=== PATIENT | female | born 1945 | race Caucasian/White ===

== ENCOUNTER 2016-08-27 12:59 | Observation (INO) | payer MEDICARE, BC ==
[2016-08-27] VITALS (8 sets, daily range): BP systolic 146–220; BP diastolic 64–92; PULSE 62–90; RESP 16–20; TEMP 97.9–98.1; O2SAT 97–99
[~2016-08-27] VITALS: Ht 157.5 cm; Wt 73.0 kg
[~2016-08-27 12:59] MED LIST: Z.0.NO CURRENT MEDS
[2016-08-27] MEDS ORDERED: LISI-515 PO (13:14)
[2016-08-27] MEDS ORDERED: ASPI1TAB69 PO (13:14)
[2016-08-27] MEDS ORDERED: ATOR40TA16 PO (13:14)
[2016-08-27] MEDS ORDERED: AMLO5TAB2 PO (13:14)
[2016-08-27] MEDS ORDERED: METF500T PO (13:14)
[2016-08-27] MEDS ORDERED: SODIUM CHLOR 0.9% 1000 ML INJ 1,000 ML IV ONE (13:16)
[2016-08-27 13:27] LABS: I-STAT POTASSIUM 4.1 MMOL/L (3.5-4.9); I-STAT SODIUM 140 MMOL/L (138-146)
[2016-08-27 13:30] LABS: AUTOMATED NEUTROPHIL # 3.9 TH/MM3 (1.8-7.7); BASOPHIL % 0.6 % (0.0-2.0); EOSINOPHIL # 0.3 TH/MM3 (0-0.4); EOSINOPHIL % 4.8 % (0.0-4.0); HEMATOCRIT 43.1 % (35.0-46.0); HEMO FLAGS DIFF FINAL; LYMPHOCYTE # 1.6 TH/MM3 (1.0-4.8); MEAN CELL VOLUME 86.8 FL (80.0-100.0); MEAN CORPUSCULAR HEMOGLOBIN 29.8 PG (27.0-34.0); MEAN CORPUSCULAR HGB CONC 34.3 % (32.0-36.0); MONO % 5.9 % (0.0-8.0); NEUT % 62.7 % (16.0-70.0); PLATELET COUNT 202 TH/MM3 (150-450); RED BLOOD COUNT 4.96 MIL/MM3 (4.00-5.30); RED CELL DISTRIBUTION WIDTH 13.3 % (11.6-17.2); WHITE BLOOD COUNT 6.1 TH/MM3 (4.0-11.0)
[2016-08-27 13:38] LABS: APTT (PATIENT) 27.7 SEC (24.3-30.1); INTERNATIONAL NORMALIZED RATIO 0.9 RATIO; PROTHROMBIN TIME - PATIENT 10.4 SEC (9.8-11.6)
--- NOTE | 2016-08-27 13:43 | RADRPT ---
EXAM DATE/TIME: 08/27/2016 13:20 [facility] COMPARISON: No previous studies available for comparison. INDICATIONS : Stroke alert; acute onset of confusion; altered mental status. RADIATION DOSE: 42.26 CTDIvol (mGy) This report was called by Dr Carpio to Dr Bose at 1338 MEDICAL HISTORY : Non-responsive. SURGICAL HISTORY : Non-responsive. ENCOUNTER: Initial ACUITY: 1 day PAIN SCALE: Non-responsive LOCATION: cranial TECHNIQUE: Multiple contiguous axial images were obtained of the head. Using automated exposure control and adj ustment of the mA and/or kV according to patient size, radiation dose was kept as low as reasonably a chievable to obtain optimal diagnostic quality images. FINDINGS: No hemorrhage. A questionable hyperdense MCA sign on the left. The brain parenchyma shows normal atte nuation. No stroke involving a major vascular territory appreciated. No mass. Ventricles are normal i n size. Paranasal sinuses and mastoid air cells are clear. CONCLUSION: Questionable dense MCA sign on the left. No hemorrhage. Hugh Quiles Jr., MD on August 27, 2016 at 13:30 Board Certified Radiologist. This report was verified electronically.
[2016-08-27 13:54] LABS: CREATINE KINASE 80 U/L (26-192)
[2016-08-27] MEDS ORDERED: ASPIRIN 325 MG TAB PO ONE (14:00)
[2016-08-27] MEDS ORDERED: IOHEXOL 350 MG/ML 10 ML VIAL (for RAD DIAG) IV ONE (14:03)
--- NOTE | 2016-08-27 14:07 | RADRPT ---
EXAM DATE/TIME: 08/27/2016 13:28 [facility] COMPARISON: CT BRAIN W/O CONTRAST, August 27, 2016, 13:20. INDICATIONS : Confusion IV CONTRAST: 62 cc Omnipaque 350 (iohexol) IV ; Cumulative dose for multiple exams. RADIATION DOSE: 26.93 CTDIvol (mGy) ; Combined studies MEDICAL HISTORY : Unable to obtain SURGICAL HISTORY : Unable to obtain ENCOUNTER: Initial ACUITY: 1 day PAIN SCALE: 0/10 LOCATION: cranial TECHNIQUE: Volumetric scanning was performed using a multi-row detector CT scanner. The data was post processed with a variety of visualization algorithms including full volume maximum intensity projection, multi -planar sliding thin slab reformation, curved planar reformation, and surface rendering techniques. Using automated exposure control and adjustment of the mA and/or kV according to patient size, radiat ion dose was kept as low as reasonably achievable to obtain optimal diagnostic quality images. FINDINGS: There is excellent visualization of the major intracranial arteries out to the second-order branch ve ssels. There is no evidence for aneurysm, vessel truncation or stenosis, and no evidence for vascula r malformation. CONCLUSION: Normal examination. Specifically the left middle cerebral artery is normal Sagar Jha MD on August 27, 2016 at 14:03 Board Certified Radiologist. This report was verified electronically.
[2016-08-27] MEDS ORDERED: ENALAPRILAT 1.25 MG/ML VIAL IV PUSH ONE (14:15)
--- NOTE | 2016-08-27 14:17 | RADRPT ---
EXAM DATE/TIME: 08/27/2016 13:28 [facility] COMPARISON: No previous studies available for comparison. INDICATIONS : Confusion today IV CONTRAST: 62 cc Omnipaque 350 (iohexol) IV ; Cumulative dose for multiple exams. RADIATION DOSE: 26.93 CTDIvol (mGy) ; Combined studies MEDICAL HISTORY : Unable to obtain SURGICAL HISTORY : Unable to obtain ENCOUNTER: Initial ACUITY: 1 day PAIN SCALE: 0/10 LOCATION: CTA Carotids TECHNIQUE: Volumetric scanning was performed using a multirow detector CT scanner. The data was post processed with a variety of visualization algorithms including full-volume maximum intensity projection, multip lanar sliding thin-slab reformation, curved-planar reformation, and surface-rendering techniques. Us ing automated exposure control and adjustment of the mA and/or kV according to patient size, radiatio n dose was kept as low as reasonably achievable to obtain optimal diagnostic quality images. FINDINGS: AORTIC ARCH: There is a two-vessel origin of the great vessels from the aorta. No evidence of ostial narrowing. RIGHT CAROTID: The common carotid artery is intact. The carotid bulb has a normal configuration without ulceration o r narrowing. The internal carotid artery lumen is smooth without stenosis. The external carotid arelis ry is stenotic at its origin. This is secondary to partially calcified atheromatous plaque. LEFT CAROTID: The common carotid artery is intact. The carotid bulb has a normal configuration without ulceration or narrowing. The internal carotid artery lumen is smooth without stenosis. The external carotid ar tarah is stenotic at its origin due to partially calcified atheromatous plaque.. VERTEBRALS: The vertebral arteries have a symmetric diameter. No stenotic lesions are seen. Note is made of an 8mm nodular density involving the right upper lobe. CONCLUSION: 1. Bilateral external carotid artery stenoses. 2. The common carotid arteries and internal carotid arteries are patent bilaterally. 3. Vertebral arteries are patent. 4. 8mm pulmonary nodule involving the right upper lobe. This is nonspecific in its CT appearance. Con senior consumer insights consultant a followup CT of the thorax in 3-6 months. Hugh Quiles Jr., MD on August 27, 2016 at 14:07 Board Certified Radiologist. This report was verified electronically.
[2016-08-27] MEDS ORDERED: DEXTROSE 50% IN WATER 50 ML VIAL(D50) IV PUSH PRN (15:30)
[2016-08-27] MEDS ORDERED: ONDANSETRON HCL 4 MG/2 ML VIAL IV PUSH PRN (15:30)
[2016-08-27] MEDS ORDERED: GLUCAGON 1 MG/ML VIAL OTHER PRN (15:30)
[2016-08-27] MEDS ORDERED: ACETAMINOPHEN 325 MG TAB PO PRN (15:30)
[2016-08-27] MEDS ORDERED: ENALAPRILAT 1.25 MG/ML VIAL IV PUSH PRN (15:30)
--- NOTE | 2016-08-27 15:32 | HHI.HP ---
[facility] Service [facility] Primary Care Physician No Primary Care Physician Admission Diagnosis Transient Global Amnesia Diagnoses: (1) Altered mental status Diagnosis: Principal Chief Complaint: stroke alert Travel History International Travel<30 Days: No Contact w/Intl Traveler <30 Da: No Traveled to Known Affected Are: No History of Present Illness patient is a 71 y/o female with history of hypertension, diabetes and dyslipidemia who was brought to ER with sudden memory loss. most of the information was obtained from ER documents and the family. the says that she was at her usual state of health till this morning when he noticed that she became confused and lost her memory. earlier she was complaining of blurred vision. there's no report of focal weakness, headache or slurred speech. there's no history of previous similar episodes in the past. Review of Systems Constitutional: DENIES: Fever, Weight loss, Chills, Night Sweats Eyes: COMPLAINS OF: Blurred vision, DENIES: Diplopia, Vision loss, Double Vision Ears, nose, mouth, throat: DENIES: Tinnitus, Vertigo, Throat pain, Epistaxis Respiratory: DENIES: Apneas, Cough, Snoring, Wheezing, Hemoptysis, Sputum production, Shortness of breath Cardiovascular: DENIES: Chest pain, Palpitations, Syncope, Dyspnea on Exertion , PND, Lower Extremity Edema, Orthopnea, Claudication Gastrointestinal: DENIES: Abdominal pain, Black stools, Bloody stools, Constipation, Diarrhea, Nausea, Vomiting, Difficulty Swallowing, Anorexia Genitourinary: DENIES: Urinary frequency, Urgency, Hematuria, Dysuria Musculoskeletal: DENIES: Joint pain, Muscle aches, Stiffness, Joint Swelling Integumentary: DENIES: Rash Neurologic: DENIES: Abnormal gait, Headache, Localized weakness, Paresthesias, Seizures, Speech Problems, Tremor, Poor Balance Psychiatric: COMPLAINS OF: Confusion, DENIES: Anxiety, Mood changes, Depression, Hallucinations, Agitation, Suicidal Ideation, Homicidal Ideation, Delusions Past Family Social History Past Medical History hypertension diabetes dyslipidemia Past Surgical History appendectomy foot surgery abrahan-tac Reported Medications metformin lisinopril norvasc aspirin atorvastatin Allergies: Coded Allergies: No Known Allergies (Unverified , 08/27/16) Active Ordered Medications Current Medications Sodium Chloride (NS 1000 ml Inj) 1,000 ml @ 70 mls/hr [id number] ONCE IV Last administered on 08/27/16 13:54; Start 08/27/16 at 13:16; Stop 08/28/16 at 03:33 Aspirin (Aspirin) 325 mg ONCE ONCE PO Last administered on 08/27/16 14:35; Start 08/27/16 at 14:00; Stop 08/27/16 at 14:01; Status DC Iohexol (Omnipaque 350 Inj) 62 ml STK-MED ONCE IV Last administered on 14:03; Start 08/27/16 at 14:03; Stop 08/27/16 at 14:04; Status DC Aspirin 325 mg 325 mg DAILY PO ; Start 08/28/16 at 09:00 Sodium Chloride (NS 1000 ml Inj) 1,000 ml @ 75 mls/hr [id number] IV ; Start at 14:01 Enalaprilat (Vasotec Inj) 2.5 mg ONCE ONCE IV PUSH ; Start 08/27/16 at 14:15; Stop 08/27/16 at 14:16; Status DC Family History not significant. Social History doesn't smoke or drink. Physical Exam Vital Signs Vital Signs Date Time Temp Pulse Resp B/P Pulse Ox O2 Delivery O2 Flow Rate FiO2 08/27/16 13:36 90 16 146/91 99 Nasal Cannula 2 08/27/16 13:25 18 98 Nasal Cannula 2 08/27/16 13:10 98 Nasal Cannula 2.00 08/27/16 13:10 98 2.00 08/27/16 13:09 98.0 74 18 208/84 98 08/27/16 13:08 98 Nasal Cannula 2 08/27/16 13:04 98.0 74 16 208/84 98 Room Air Physical Exam GENERAL: This is a well-nourished, well-developed patient, in no apparent distress. SKIN: No rashes, ecchymoses or lesions. Cool and dry. HEAD: Atraumatic. Normocephalic. No temporal or scalp tenderness. EYES: Pupils equal round and reactive. Extraocular motions intact. No scleral icterus. No injection or drainage. ENT: Nose without bleeding, purulent drainage or septal hematoma. Throat without erythema, tonsillar hypertrophy or exudate. Uvula midline. Airway patent. NECK: Trachea midline. No JVD or lymphadenopathy. Supple, nontender, no meningeal signs. CARDIOVASCULAR: Regular rate and rhythm without murmurs, gallops, or rubs. RESPIRATORY: Clear to auscultation. Breath sounds equal bilaterally. No wheezes , rales, or rhonchi. GASTROINTESTINAL: Abdomen soft, non-tender, nondistended. No hepato-splenomegaly , or palpable masses. No guarding. MUSCULOSKELETAL: Extremities without clubbing, cyanosis, or edema. No joint tenderness, effusion, or edema noted. No calf tenderness. Negative Homans sign bilaterally. NEUROLOGICAL: Awake and alert. Cranial nerves II through XII intact. Motor and sensory grossly within normal limits. Five out of 5 muscle strength in all muscle groups. Normal speech. Laboratory Laboratory Tests Test 08/27/16 13:15 White Blood Count 6.1 Red Blood Count 4.96 Hemoglobin 14.8 Bedside Hemoglobin 14.3 Hematocrit 43.1 Bedside Hematocrit 42.0 Mean Corpuscular Volume 86.8 Mean Corpuscular Hemoglobin 29.8 Mean Corpuscular Hemoglobin 34.3 Concent Red Cell Distribution Width 13.3 Platelet Count 202 Mean Platelet Volume 8.3 Neutrophils (%) (Auto) 62.7 Lymphocytes (%) (Auto) 26.0 Monocytes (%) (Auto) 5.9 Eosinophils (%) (Auto) 4.8 Basophils (%) (Auto) 0.6 Neutrophils # (Auto) 3.9 Lymphocytes # (Auto) 1.6 Monocytes # (Auto) 0.4 Eosinophils # (Auto) 0.3 Basophils # (Auto) 0.0 CBC Comment DIFF FINAL Differential Comment Prothrombin Time 10.4 Prothromb Time International 0.9 Ratio Activated Partial 27.7 Thromboplast Time Bedside Sodium 140 Bedside Potassium 4.1 Bedside Chloride 106 Bedside Blood Urea Nitrogen 20 Bedside Creatinine 0.9 Bedside Glucose 113 Total Creatine Kinase 80 Troponin I LESS THAN 0.02 Blood Type B POSITIVE Antibody Screen NEGATIVE Blood Bank Comment Result Diagram: 08/27/16 1315 Imaging Last Impressions Head CTA 08/27/16 1320 Signed Impressions: Service Date/Time: Saturday, August 27, 2016 13:28 - CONCLUSION: Normal examination. Specifically the left middle cerebral artery is normal Sagar Jha MD Neck CTA 08/27/16 1316 Signed Impressions: Service Date/Time: Saturday, August 27, 2016 13:28 - CONCLUSION: 1. Bilateral external carotid artery stenoses. 2. The common carotid arteries and internal carotid arteries are patent bilaterally. 3. Vertebral arteries are patent. 4. 8mm pulmonary nodule involving the right upper lobe. This is nonspecific in its CT appearance. Consider a followup CT of the thorax in 3-6 months. Hugh Quiles Jr., MD Head CT 08/27/16 0000 Signed Impressions: Service Date/Time: Saturday, August 27, 2016 13:20 - CONCLUSION: Questionable dense MCA sign on the left. No hemorrhage. Hugh Quiles Jr., MD Assessment and Plan Assessment and Plan A/P - possible CVA with sudden memory loss continue aspirin and statin- neuro checks- MRI of the brain pending- neurology consulted. -hypertension; vasotec prn for now -diabetes mellitus; accu-check with SSI -dyslipidemia; resume statin -DVT prophylaxis with SCD's. Discussed Condition With ER physician, the patient and her . Problem Qualifiers (1) Altered mental status: Qualified Code: R41.82 - Altered mental status, unspecified altered mental status type Padmini Chacon MD Aug 27, 2016 15:32
--- NOTE | 2016-08-27 15:33 | PD ---
HPI Chief Complaint: Stroke Alert Time Seen by Provider: 13:15 Travel History International Travel<30 days: No Contact w/Intl Traveler<30days: No Traveled to known affect area: No History of Present Illness HPI Patient is a 71-year-old female who presents to emergency room with her with complaints of altered mental status. As per patient's , patient was out shopping this morning and was her normal self up until they came home and she began making brownies. Reports that around 10am, patient reports that she began to have vision changes and blurry vision and reports that she did c/o of a slight headache. Patient stopped baking and sat down. reports that he checked up on her 30 minutes later and noticed that she was confused. Reports that she couldn't remember the events of the morning as well as events of yesterday. Reports no weakness, reports no slurring of speech. Reports the patient seems very confused at this time and can't remember anything short- term. Patient at this time with no complaints, patient with no history of CVA in the past or history of seizures in the past. Patient denies any fall or trauma to head or neck. PFSH Past Surgical History Appendectomy: Yes Other Surgery: Yes (ZAKIA BLAKE) Social History Alcohol Use: No Tobacco Use: No Allergies-Medications (Allergen,Severity, Reaction): Coded Allergies: No Known Allergies (Unverified , 08/27/16) Reported Meds & Prescriptions Reported Meds & Active Scripts Active Reported Aspirin 81 Mg Tabdr 81 Mg PO DAILY Amlodipine (Amlodipine Besylate) 5 Mg Tab 5 Mg PO DAILY Atorvastatin (Atorvastatin Calcium) 40 Mg Tab 40 Mg PO HS Metformin (Metformin HCl) 500 Mg Tab 500 Mg PO DAILY With a meal Lisinopril 20 Mg Tab 20 Mg PO DAILY Review of Systems General / Constitutional: No: Fever Eyes: No: Visual changes HENT: Positive: Headaches Cardiovascular: No: Chest Pain or Discomfort Respiratory: No: Shortness of Breath Gastrointestinal: No: Abdominal Pain Genitourinary: No: Dysuria Musculoskeletal: No: Pain Skin: No Rash Neurologic: Positive: Change in Mentation, No: Weakness Psychiatric: No: Depression Endocrine: No: Polydipsia Hematologic/Lymphatic: No: Easy Bruising Physical Exam Narrative GENERAL: patient in mild distress SKIN: Warm and dry. HEAD: Atraumatic. Normocephalic. EYES: Pupils equal and round. No scleral icterus. No injection or drainage. ENT: No nasal bleeding or discharge. Mucous membranes pink and moist. NECK: Trachea midline. No JVD. CARDIOVASCULAR: Regular rate and rhythm. No murmur appreciated. RESPIRATORY: No accessory muscle use. Clear to auscultation. Breath sounds equal bilaterally. GASTROINTESTINAL: Abdomen soft, non-tender, nondistended. Hepatic and splenic margins not palpable. MUSCULOSKELETAL: No obvious deformities. No clubbing. No cyanosis. No edema. NEUROLOGICAL: Awake and alert. No obvious cranial nerve deficits. Motor grossly within normal limits. Normal speech. CN 2- 12 grossly intact with no obvious CN deficits, no visual deficits PSYCHIATRIC: Appropriate mood and affect; insight and judgment normal. Data Data Last Documented VS Vital Signs Date Time Temp Pulse Resp B/P Pulse Ox O2 Delivery O2 Flow Rate FiO2 08/27/16 13:36 90 16 146/91 99 Nasal Cannula 2 08/27/16 13:09 98.0 Orders Activity Bed Rest (08/27/16 ) Electrocardiogram (08/27/16 ) I-Stat Creatinine (08/27/16 13:16) I-Stat Profile (08/27/16 13:16) Prothrombin Time / Inr (Pt) (08/27/16 13:16) Act Partial Throm Time (Ptt) (08/27/16 13:16) Complete Blood Count With Diff (08/27/16 13:16) Creatine Kinase (Cpk) (08/27/16 13:16) Troponin I (08/27/16 13:16) Ua Includes Microscopic (08/27/16 13:16) Type And Screen (08/27/16 13:16) Ct Brain W/O Iv Contrast(Rout) (08/27/16 ) Cta Neck W Iv Contrast W 3d (08/27/16 13:16) Consult Neurology (08/27/16 ) Blood Glucose (08/27/16 13:16) Ecg Monitoring (08/27/16 13:16) Neuro Checks Q2HX12,Q4H (08/27/16 13:16) Nursing Bedside Swallow Assess .ONCE (08/27/16 13:16) Iv Access Insert/Monitor (08/27/16 13:16) NPO (08/27/16 13:16) Oxygen Administration (08/27/16 13:16) Sodium Chlor 0.9% 1000 Ml Inj (Ns 1000 M (08/27/16 13:16) Cath For Specimen (08/27/16 13:16) Cta Brain W Iv Contrast W 3d (08/27/16 13:20) (Hub Use Only)Inp Phy Cons/Ref (08/27/16 ) Aspirin (Aspirin) (08/27/16 14:00) Westergren Sedimentation Rate (08/27/16 14:01) Rapid Plasma Regin (Rpr) W Ttr (08/27/16 14:01) [place] Screen (08/27/16 14:01) Thyroid Stimulating Hormone (08/27/16 14:01) Free Thyroxine (T4) (08/27/16 14:01) Vitamin B1 (Thiamine) (08/27/16 14:01) Vitamin B12 (08/27/16 14:01) Urinalysis - C+S If Indicated (08/27/16 14:01) Ast (Sgot) (08/27/16 14:01) Iohexol 350 Inj (Omnipaque 350 Inj) (08/27/16 14:03) Alt (Sgpt) (08/27/16 14:01) Mri Brain W&W/O Contrast (08/27/16 14:01) Eeg Study (08/27/16 14:01) Echo 2d Comp W/Dopp(Routine) (08/27/16 14:01) Holter Monitor Recording (08/27/16 14:01) Squash Centre Manager / Telemetry (08/27/16 14:01) ^ Seizure Precautions (08/27/16 14:01) [place] (08/27/16 14:01) Sodium Chlor 0.9% 1000 Ml Inj (Ns 1000 M (08/27/16 14:01) Drug Screen, Random Urine (08/27/16 14:01) Folate, Serum (08/27/16 14:01) Scd&Teds Bilateral/Knee High MAYELIN.QSHIFT (08/27/16 14:01) Lipid Profile (08/27/16 14:05) Aspirin Ec (Ecotrin Ec) (08/28/16 09:00) Enalaprilat Inj (Vasotec Inj) (08/27/16 14:15) Admit Order (Ed Use Only) (08/27/16 15:10) Labs Laboratory Tests Test 08/27/16 13:15 White Blood Count 6.1 TH/MM3 Red Blood Count 4.96 MIL/MM3 Hemoglobin 14.8 GM/DL Bedside Hemoglobin 14.3 G/DL Hematocrit 43.1 % Bedside Hematocrit 42.0 % Mean Corpuscular Volume 86.8 FL Mean Corpuscular Hemoglobin 29.8 PG Mean Corpuscular Hemoglobin 34.3 % Concent Red Cell Distribution Width 13.3 % Platelet Count 202 TH/MM3 Mean Platelet Volume 8.3 FL Neutrophils (%) (Auto) 62.7 % Lymphocytes (%) (Auto) 26.0 % Monocytes (%) (Auto) 5.9 % Eosinophils (%) (Auto) 4.8 % Basophils (%) (Auto) 0.6 % Neutrophils # (Auto) 3.9 TH/MM3 Lymphocytes # (Auto) 1.6 TH/MM3 Monocytes # (Auto) 0.4 TH/MM3 Eosinophils # (Auto) 0.3 TH/MM3 Basophils # (Auto) 0.0 TH/MM3 CBC Comment DIFF FINAL Differential Comment Prothrombin Time 10.4 SEC Prothromb Time International 0.9 RATIO Ratio Activated Partial 27.7 SEC Thromboplast Time Bedside Sodium 140 MMOL/L Bedside Potassium 4.1 MMOL/L Bedside Chloride 106 MMOL/L Bedside Blood Urea Nitrogen 20 MG/DL Bedside Creatinine 0.9 MG/DL Bedside Glucose 113 MG/DL Total Creatine Kinase 80 U/L Troponin I LESS THAN 0.02 NG/ML Blood Type B POSITIVE Antibody Screen NEGATIVE Blood Bank Comment MDM Medical Decision Making Medical Screen Exam Complete: Yes Emergency Medical Condition: Yes Interpretation(s) EKG at 1352: Normal sinus rhythm at 86 patient minute, QT/QTC: 417/460, lbbb Vital Signs Date Time Temp Pulse Resp B/P Pulse Ox O2 Delivery O2 Flow Rate FiO2 08/27/16 13:36 90 16 146/91 99 Nasal Cannula 2 08/27/16 13:25 18 98 Nasal Cannula 2 08/27/16 13:10 98 Nasal Cannula 2.00 08/27/16 13:10 98 2.00 08/27/16 13:09 98.0 74 18 208/84 98 08/27/16 13:08 98 Nasal Cannula 2 08/27/16 13:04 98.0 74 16 208/84 98 Room Air CBC & BMP Diagram 08/27/16 13:15 Laboratory Tests Test 08/27/16 13:15 White Blood Count 6.1 TH/MM3 (4.0-11.0) Red Blood Count 4.96 MIL/MM3 (4.00-5.30) Hemoglobin 14.8 GM/DL (11.6-15.3) Bedside Hemoglobin 14.3 G/DL (12.0-17.0) Hematocrit 43.1 % (35.0-46.0) Bedside Hematocrit 42.0 % (38.0-51.0) Mean Corpuscular Volume 86.8 FL (80.0-100.0) Mean Corpuscular Hemoglobin 29.8 PG (27.0-34.0) Mean Corpuscular Hemoglobin 34.3 % Concent (32.0-36.0) Red Cell Distribution Width 13.3 % (11.6-17.2) Platelet Count 202 TH/MM3 (150-450) Mean Platelet Volume 8.3 FL (7.0-11.0) Neutrophils (%) (Auto) 62.7 % (16.0-70.0) Lymphocytes (%) (Auto) 26.0 % (9.0-44.0) Monocytes (%) (Auto) 5.9 % (0.0-8.0) Eosinophils (%) (Auto) 4.8 % (0.0-4.0) Basophils (%) (Auto) 0.6 % (0.0-2.0) Neutrophils # (Auto) 3.9 TH/MM3 (1.8-7.7) Lymphocytes # (Auto) 1.6 TH/MM3 (1.0-4.8) Monocytes # (Auto) 0.4 TH/MM3 (0-0.9) Eosinophils # (Auto) 0.3 TH/MM3 (0-0.4) Basophils # (Auto) 0.0 TH/MM3 (0-0.2) CBC Comment DIFF FINAL Differential Comment Prothrombin Time 10.4 SEC (9.8-11.6) Prothromb Time International 0.9 RATIO Ratio Activated Partial 27.7 SEC Thromboplast Time (24.3-30.1) Bedside Sodium 140 MMOL/L (138-146) Bedside Potassium 4.1 MMOL/L (3.5-4.9) Bedside Chloride 106 MMOL/L (98-109) Bedside Blood Urea Nitrogen 20 MG/DL (8-26) Bedside Creatinine 0.9 MG/DL (0.6-1.0) Bedside Glucose 113 MG/DL (60-95) Total Creatine Kinase 80 U/L (26-192) Troponin I LESS THAN 0.02 NG/ML (0.02-0.05) Blood Type B POSITIVE Antibody Screen NEGATIVE Blood Bank Comment Last Impressions Head CTA 08/27/16 1320 Signed Impressions: Service Date/Time: Saturday, August 27, 2016 13:28 - CONCLUSION: Normal examination. Specifically the left middle cerebral artery is normal Sagar Jha MD Neck CTA 08/27/16 1316 Signed Impressions: Service Date/Time: Saturday, August 27, 2016 13:28 - CONCLUSION: 1. Bilateral external carotid artery stenoses. 2. The common carotid arteries and internal carotid arteries are patent bilaterally. 3. Vertebral arteries are patent. 4. 8mm pulmonary nodule involving the right upper lobe. This is nonspecific in its CT appearance. Consider a followup CT of the thorax in 3-6 months. Hugh Quiles Jr., MD Head CT 08/27/16 0000 Signed Impressions: Service Date/Time: Saturday, August 27, 2016 13:20 - CONCLUSION: Questionable dense MCA sign on the left. No hemorrhage. Hugh Quiles Jr., MD Differential Diagnosis cva, tia, transient global amnesia, electrolyte abnormality, arrhythmia, intracranial hemorrhage Narrative Course Patient is a 71-year-old female who presents to emergency room with her in for evaluation of possible CVA. As per patient's , patient was last seen normal around 10 AM this morning. Reports that patient was fine this morning with no complaints, reports that around 10 AM, patient reported vision changes and blurry vision. Reports that 30 minutes later, he went to check up on her and noticed that patient was grossly confused. Patient with no history of CVA in the past. Patient does take a baby aspirin daily. Stroke alert was called on patient upon arrival to emergency room. NIH scale 0 Case was reviewed with Dr. Bose - does not think that patient is having a stroke, request cta of head and neck and asa if ct of head neg. Dr Bose did see patient in the ER, pt with most likely transient global anmesia. Plan to admit to hospital for further observation Case discussed with Dr Ceja who accepts pt to service Critical Care Narrative Aggregate critical care time was 30 minutes. Time to perform other separately billable procedures was not included in the critical care time. My time did not include minutes spent treating any other patients simultaneously or on activities that did not directly contribute to the patient's treatment. The services I provided to this patient were to treat and/or prevent clinically significant deterioration that could result in: , decompensation, deterioration I provided critical care services requiring my management, as noted below: Chart data review, documentation time, medication orders and management, vital sign assessments/reviewing monitor data, ordering and reviewing lab tests, ordering and interpreting/reviewing x-rays and diagnostic studies, care of the patient and discussion of the patient with the admitting physicians. Physician Communication Physician Communication case reviewed with dr fang and dr bose Diagnosis Primary Impression: Transient global amnesia Admitting Information Admitting Physician Requests: Observation Amina Arenas DO Aug 27, 2016 15:33
[2016-08-27] MEDS: INSULIN ASPART SUPPLEMENTAL SCALE SQ SCH ×2 (16:00→21:00)
[2016-08-27] MEDS: SODIUM CHLOR 0.9% 1000 ML INJ 1,000 ML IV SCH (17:22)
[2016-08-27] MEDS ORDERED: GADODIAMIDE PF 287 MG/ML 5 ML VIAL (for RAD MRI) IV ONE (17:39)
--- NOTE | 2016-08-27 17:47 | RADRPT ---
EXAM DATE/TIME: 08/27/2016 17:09 [place] COMPARISON: CTA BRAIN W 3D RECON, August 27, 2016, 13:28. CTA CAROTID ARTERIES W 3D RECON, August 27, 2016, 13 :28. CT BRAIN W/O CONTRAST, August 27, 2016, 13:20. INDICATIONS : CVA. Confusion. CONTRAST: 15 cc Omniscan (gadodiamide) IV MEDICAL HISTORY : Hypertension. Hypercholesterolemia. Diabetes. SURGICAL HISTORY : Appendectomy. Carpal tunnel syndrome. ENCOUNTER: Subsequent ACUITY: 1 day PAIN SCORE: 0/10 LOCATION: cranial TECHNIQUE: Multiplanar, multisequence MRI of the brain was performed both prior to and following the administrat ion of paramagnetic contrast. FINDINGS: CEREBRUM: The ventricles are normal for age. No evidence of midline shift, mass lesion, hemorrhage or acute in farction. No extraaxial fluid collections are seen. The pituitary gland and suprasellar cistern are normal in configuration. WHITE MATTER: No significant signal abnormalities are seen in the white matter. POSTERIOR FOSSA: The cerebellum and brainstem are intact. The 4th ventricle is midline. The cerebellopontine angle is unremarkable. The cerebellar tonsils are normal in position. DIFFUSION IMAGING: No focal areas of restricted diffusion are seen. No evidence of acute infarction. EXTRACRANIAL: The visualized portions of the orbits and paranasal sinuses are unremarkable. POST-CONTRAST: No abnormal areas of parenchymal or dural enhancement. No evidence of blood-brain barrier breakdown. CONCLUSION: Normal examination for a patient of this age. Sagar Jha MD on August 27, 2016 at 17:44 Board Certified Radiologist. This report was verified electronically.
--- NOTE | 2016-08-27 20:22 | MB ---
cc: GREGORIO ESTEVEZ M.D. DATE OF CONSULTATION 08/27/2016 HISTORY A 71-year-old right-handed woman with a history of hypertension, epc-gkwnsgl-tzekdaorm diabetes, hypercholesterolemia, bundle branch block. No A fib. Takes a baby aspirin a day. At about 10-11 a.m. this morning she said she had some blurry vision evidently had a little bit of a headache and her left and came back and noticed that she seemed a little bit confused. She was brought to the emergency room and a stroke alert was called. REVIEW OF SYSTEMS According to the no history of FL, CABG, A fib, Coumadin, renal, hepatic or pulmonary disease, thyroid disease, lupus, ulcer, cancer, seizure or stroke. SOCIAL HISTORY Not a smoker or a drinker. Lives with her . FAMILY HISTORY Positive for cancer. Negative for seizure or stroke. PHYSICAL EXAMINATION VITAL SIGNS: She was 208/84 and now 146/91, 16, 90. Afebrile. On exam sinus rhythm. NECK: There were no carotid bruits. CARDIOVASCULAR: Heart was regular rhythm. I did not detect a murmur. NEUROLOGICAL: Pupils are equal. Visual mendes are full. Extraocular movements intact without nystagmus. She was able to read, repeat, name, calculate show me either thumb. Speech is fluent. She is not aphasic. She was able to repeat but was unable to learn any new words and her short term memory was 0/3 at 2 minutes and at 5 minutes. Face symmetric, normal sensation. Tongue was midline. No drift. Normal strength in upper lower extremities bilaterally. DTRs 1+ symmetric throughout. Toes downgoing bilaterally. Pinprick is intact throughout. She is not ataxic. LABORATORY DATA CBC is normal. Basic metabolic profile normal. CPK and troponin are pending. Coags are normal. IMAGING CT of the brain I reviewed. There was a questionable left hyperdense sign effect. The left MCA is rather well seen but not particularly hyperdense and in fact her CTA reading in talking with the radiologist is negative at this time for any left MCA or other stenosis. IMPRESSION I believe this is transient global amnesia in fact fairly classic for it. I will check an MRI of the brain and EEG. Check some additional blood work. I will following her with her in the hospital. But does not appear to be a stroke, as such TPA not given. NIH stroke scale was zero. MD KATHARINE Schultz/SAMIR /2:01 PM /8:10 PM
[2016-08-27] MEDS: ATORVASTATIN 40 MG TAB PO SCH (21:00)
[2016-08-27 22:42] LABS: FREE T4 1.19 NG/DL (0.76-1.46)
[2016-08-28] VITALS (8 sets, daily range): BP systolic 149–190; BP diastolic 60–74; PULSE 60–84; RESP 16–20; TEMP 97.7–98.6; O2SAT 95–100
[2016-08-28] MEDS: SODIUM CHLOR 0.9% 1000 ML INJ 1,000 ML IV SCH (03:07)
[2016-08-28] MEDS: INSULIN ASPART SUPPLEMENTAL SCALE SQ SCH ×4 (06:32→21:05)
--- NOTE | 2016-08-28 06:57 | MG ---
cc: VARUN PIERCE M.D. Lab No: [id number]____ Date: 08/27/2016 Age: 71 Sex: F Race: ___ HISTORY An EEG was obtained on this 71-year-old patient with a history of being evaluated for memory loss and confusion. DESCRIPTION The patient is described as awake. The EEG shows 10-14 per second alpha activity centrally and posteriorly. There are some faster low amplitude rhythms in the central and posterior head regions. At times, there is some slower alpha activity bilaterally. Hyperventilation was not performed. Photic stimulation was unremarkable. INTERPRETATION Normal predominantly awake EEG. MD MONTEZ Temple/ALLA /6:52 PM /6:52 AM
--- NOTE | 2016-08-28 08:00 | HHI.PR ---
Subjective Remarks sr Objective Vital Signs Date Time Temp Pulse Resp B/P Pulse Ox O2 Delivery O2 Flow Rate FiO2 08/28/16 05:09 97.7 60 20 168/74 95 08/28/16 02:24 65 08/27/16 23:34 98.1 62 20 152/68 97 08/27/16 19:57 98.1 75 20 168/64 97 08/27/16 18:03 97.9 75 18 194/75 99 08/27/16 15:59 86 16 220/92 99 Nasal Cannula 2 08/27/16 13:36 90 16 146/91 99 Nasal Cannula 2 08/27/16 13:25 18 98 Nasal Cannula 2 08/27/16 13:10 98 Nasal Cannula 2.00 08/27/16 13:10 98 2.00 08/27/16 13:09 98.0 74 18 208/84 98 08/27/16 13:08 98 Nasal Cannula 2 08/27/16 13:04 98.0 74 16 208/84 98 Room Air Result Diagram: 08/27/16 1315 Other Results mri brain and eeg and labs neg Objective Remarks ox3 vff face sym stm 3/3 3 min 5/5 t/o sr Assessment and Plan Assessment and Plan tga ok dc neuro baron on asa 81 mg her bp needs to get lower b4 dc to 120/70 8 mm lung nodule needs fu CT as per rads Alexis Bose MD Aug 28, 2016 08:00
[2016-08-28] MEDS ORDERED: amLODIPine BESYLATE 5 MG TAB PO SCH ×2 (08:15→09:00)
[2016-08-28] MEDS ORDERED: METF500T PO (08:25)
--- NOTE | 2016-08-28 08:26 | HHI.DCPOC ---
Discharge Care Plan Diagnosis: (1) Altered mental status (2) Transient global amnesia Additional Problems memory loss. Goals to Promote Your Health * To prevent worsening of your condition and complications * To maintain your health at the optimal level Directions to Meet Your Goals Take your medications as prescribed Follow your dietary instruction Follow activity as directed Keep your appointments as scheduled Take your immunizations and boosters as scheduled If your symptoms worsen call your PCP, if no PCP go to Urgent Care Center or Emergency Room Smoking is Dangerous to Your Health. Avoid second hand smoke Call the 24-hour hour crisis hotline for domestic abuse at Padmini Chacon MD Aug 28, 2016 08:26
--- NOTE | 2016-08-28 08:32 | HHI.PR ---
Subjective Remarks resting comfortably with no distress. no new complaints. at the bedside. Objective Vitals Vital Signs Date Time Temp Pulse Resp B/P Pulse Ox O2 Delivery O2 Flow Rate FiO2 08/28/16 08:00 98.2 63 16 151/60 98 08/28/16 05:09 97.7 60 20 168/74 95 08/28/16 02:24 65 08/27/16 23:34 98.1 62 20 152/68 97 08/27/16 19:57 98.1 75 20 168/64 97 08/27/16 18:03 97.9 75 18 194/75 99 08/27/16 15:59 86 16 220/92 99 Nasal Cannula 2 08/27/16 13:36 90 16 146/91 99 Nasal Cannula 2 08/27/16 13:25 18 98 Nasal Cannula 2 08/27/16 13:10 98 Nasal Cannula 2.00 08/27/16 13:10 98 2.00 08/27/16 13:09 98.0 74 18 208/84 98 08/27/16 13:08 98 Nasal Cannula 2 08/27/16 13:04 98.0 74 16 208/84 98 Room Air Result Diagram: 08/27/16 1315 Imaging Last Impressions Brain MRI 08/27/16 1401 Signed Impressions: Service Date/Time: Saturday, August 27, 2016 17:09 - CONCLUSION: Normal examination for a patient of this age. Sagar Jha MD Head CTA 08/27/16 1320 Signed Impressions: Service Date/Time: Saturday, August 27, 2016 13:28 - CONCLUSION: Normal examination. Specifically the left middle cerebral artery is normal Sagar Jha MD Neck CTA 08/27/16 1316 Signed Impressions: Service Date/Time: Saturday, August 27, 2016 13:28 - CONCLUSION: 1. Bilateral external carotid artery stenoses. 2. The common carotid arteries and internal carotid arteries are patent bilaterally. 3. Vertebral arteries are patent. 4. 8mm pulmonary nodule involving the right upper lobe. This is nonspecific in its CT appearance. Consider a followup CT of the thorax in 3-6 months. Hugh Quiles Jr., MD Head CT 08/27/16 0000 Signed Impressions: Service Date/Time: Saturday, August 27, 2016 13:20 - CONCLUSION: Questionable dense MCA sign on the left. No hemorrhage. Hugh Quiles Jr., MD Objective Remarks GENERAL: This is a well-nourished, well-developed patient, in no apparent distress. CARDIOVASCULAR: Regular rate and regular rhythm without murmurs, gallops, or rubs. RESPIRATORY: Clear to auscultation. Breath sounds equal bilaterally. No wheezes , rales, or rhonchi. GASTROINTESTINAL: Abdomen soft, non-tender, nondistended. Normal, active bowel sounds MUSCULOSKELETAL: Extremities without clubbing, cyanosis, or edema. NEURO: Alert & Oriented x4 to person, place, time, situation. Moves all ext x4 Procedures none Medications and IVs Current Medications Sodium Chloride (NS 1000 ml Inj) 1,000 ml @ 70 mls/hr [id number] ONCE IV Last administered on 08/27/16 13:54; Start 08/27/16 at 13:16; Stop 08/28/16 at 03:33 ; Status DC Aspirin (Aspirin) 325 mg ONCE ONCE PO Last administered on 08/27/16 14:35; Start 08/27/16 at 14:00; Stop 08/27/16 at 14:01; Status DC Iohexol (Omnipaque 350 Inj) 62 ml STK-MED ONCE IV Last administered on 14:03; Start 08/27/16 at 14:03; Stop 08/27/16 at 14:04; Status DC Aspirin 325 mg 325 mg DAILY PO ; Start 08/28/16 at 09:00 Sodium Chloride (NS 1000 ml Inj) 1,000 ml @ 75 mls/hr [id number] IV Last administered on 08/28/16 03:07; Start 08/27/16 at 14:01 Enalaprilat (Vasotec Inj) 2.5 mg ONCE ONCE IV PUSH Last administered on 16:02; Start 08/27/16 at 14:15; Stop 08/27/16 at 14:16; Status DC Dextrose (D50w (Vial) Inj) 25 ml UNSCH PRN IV PUSH HYPOGLYCEMIA-SEE COMMENTS; Start 08/27/16 at 15:30 Glucagon (Glucagon Inj) 1 mg UNSCH PRN OTHER HYPOGLYCEMIA-SEE COMMENTS; Start 08/27/16 at 15:30 Insulin Aspart (NovoLOG SUPPLEMENTAL SCALE) 1 ACHS SLIDING SCALE SQ ; Start at 16:00 Atorvastatin Calcium (Lipitor) 40 mg HS PO ; Start 08/27/16 at 21:00 Acetaminophen (Tylenol) 650 mg Q4H PRN PO FEVER/PAIN/HEADACHE; Start 08/27/16 at 15:30 Enalaprilat (Vasotec Inj) 1.25 mg Q8H PRN IV PUSH SBP >200 OR DBP > 110; Start 08/27/16 at 15:30 Ondansetron HCl (Zofran Inj) 4 mg Q8HR PRN IV PUSH NAUSEA; Start 08/27/16 at 15 :30 Gadodiamide (Omniscan Pf Inj) 15 ml STK-MED ONCE IV Last administered on t 17:39; Start 08/27/16 at 17:39; Stop 08/27/16 at 17:40; Status DC Amlodipine Besylate (Norvasc) 5 mg DAILY PO ; Start 08/28/16 at 09:00; Status UNV Lisinopril (Prinivil) 20 mg DAILY PO ; Start 08/28/16 at 09:00; Status UNV A/P Assessment and Plan -transient global amnesia continue aspirin and statin- neuro checks- MRI of the brain negative. EEG normal. cleared for discharge per neuro. -hypertension; resume home meds. -diabetes mellitus; accu-check with SSI -dyslipidemia; resumed statin -pulmonary nodule- f/u as outpatient and this was d/w the patient. -DVT prophylaxis with SCD's. Discharge Planning dc home-likely later today if BP is better. see med list. f/u; pcp and neurology. d/w the patient, her and the RN. Padmini Chacon MD Aug 28, 2016 08:32
--- NOTE | 2016-08-28 08:33 | HHI.DS ---
Discharge Summary Admission Date Aug 27, 2016 at 15:12 Discharge Date: Aug 29, 2016 Admitting Diagnosis Transient Global Amnesia (1) Altered mental status ICD Code: R41.82 Diagnosis: Principal (2) Transient global amnesia ICD Code: G45.4 Diagnosis: Principal Procedures none Brief History - From Admission patient is a 71 y/o female with history of hypertension, diabetes and dyslipidemia who was brought to ER with sudden memory loss. most of the information was obtained from ER documents and the family. the says that she was at her usual state of health till this morning when he noticed that she became confused and lost her memory. earlier she was complaining of blurred vision. there's no report of focal weakness, headache or slurred speech. there's no history of previous similar episodes in the past. CBC/BMP: 08/27/16 1315 Significant Findings Laboratory Tests Test 08/27/16 08/27/16 13:15 15:20 Eosinophils (%) (Auto) 4.8 % (0.0-4.0) Bedside Glucose 113 MG/DL (60-95) Troponin I LESS THAN 0.02 NG/ML (0.02-0.05) Folate 18.6 NG/ML (3.1-17.5) Thyroid Stimulating Hormone 3.830 uIU/ML 3rd Gen (0.358-3.740) Urine Ketones 10 mg/dL (NEG) PE at Discharge GENERAL: This is a well-nourished, well-developed patient, in no apparent distress. CARDIOVASCULAR: Regular rate and regular rhythm without murmurs, gallops, or rubs. RESPIRATORY: Clear to auscultation. Breath sounds equal bilaterally. No wheezes , rales, or rhonchi. GASTROINTESTINAL: Abdomen soft, non-tender, nondistended. Normal, active bowel sounds MUSCULOSKELETAL: Extremities without clubbing, cyanosis, or edema. NEURO: Alert & Oriented x4 to person, place, time, situation. Moves all ext x4 Hospital Course -transient global amnesia continue aspirin and statin- neuro checks- MRI of the brain negative. EEG normal. cleared for discharge per neuro. -hypertension; resume home meds. -diabetes mellitus; accu-check with SSI -dyslipidemia; resumed statin --pulmonary nodule- f/u as outpatient and this was d/w the patient. -DVT prophylaxis with SCD's. Pt Condition on Discharge: Good Discharge Disposition: Discharge Home Discharge Time: <= 30 minutes Discharge Instructions DIET: Follow Instructions for: Heart Healthy Diet, Diabetic Diet Activities you can perform: Regular-No Restrictions Follow up Referrals: Neurology PCP Follow-up Changed Medications: Amlodipine (Amlodipine) 5 Mg Tab 10 MG PO DAILY Blood Pressure Management #30 Ref 0 TAB (Changed from: 5 MG) Metformin (Metformin) 500 Mg Tab 500 MG PO DAILY restart on 08/29/16. Blood Sugar Management #30 Ref 0 TAB ( Changed from: With a meal) Continued Medications: Aspirin (Aspirin) 81 Mg Tabdr 81 MG PO DAILY TAB Atorvastatin (Atorvastatin) 40 Mg Tab 40 MG PO HS Cholesterol Management #30 Ref 0 TAB Lisinopril (Lisinopril) 20 Mg Tab 20 MG PO DAILY #30 Ref 0 TAB Padmini Chacon MD Aug 28, 2016 08:33
[2016-08-28] MEDS: amLODIPine BESYLATE 5 MG TAB PO SCH (08:56)
[2016-08-28] MEDS: ASPIRIN EC 325 MG TABEC PO SCH (08:57)
[2016-08-28] MEDS: LISINOPRIL 20 MG TAB PO SCH (08:57)
[2016-08-28] MEDS ORDERED: LISINOPRIL 20 MG TAB PO SCH (09:00)
[2016-08-28 10:00] LABS: BLOOD, URINE NEG (NEG); COMMENT (UR) CULT NOT INDICATED; CULTURE IF INDICATED CULT NOT INDICATED; GLUCOSE,URINE NEG (NEG); KETONE, URINE 10 mg/dL (NEG); NITRITE,URINE NEG (NEG); SQUAMOUS EPITHELIAL CELL URINE <1 /hpf (0-5); URINE COLOR COLORLESS (YELLW/STRAW)
[2016-08-28 10:07] LABS: AMPHETAMINE, URINE NEG (NEG); BARBITURATES, URINE NEG (NEG); COCAINE, URINE NEG (NEG)
[2016-08-28 10:14] LABS: RAPID PLASMA REAGIN SCREEN NON-REACTIVE (NON-REACTVE)
[2016-08-28] MEDS ORDERED: NIFEdipine 30 MG SUSTAINED RELEASE TAB PO ONE (12:45)
--- NOTE | 2016-08-28 15:35 | EC ---
Study Study Date:08/28/2016 STUDY CONCLUSIONS SUMMARY - Left ventricle: The cavity size was normal. Wall thickness was normal. Systolic function was normal. The estimated ejection fraction was in the range of 50% to 55%. Wall motion was normal; there were no regional wall motion abnormalities. - Mitral valve: Mildly calcified annulus. Impressions: No cardiac source of emboli was indentified. If LV function is below 40, please consider prescribing an ACEI or ARB or document rationale for non-use. PROCEDURE DATA STUDY STATUS: Elective. Procedure: Transthoracic echocardiography. Image quality was good. Scanning was performed from the parasternal, apical, and subcostal acoustic windows. Study completion: The patient tolerated the procedure well. Transthoracic echocardiography. M-mode, complete 2D, complete spectral Doppler, and color Doppler. Patient status: Inpatient. CARDIAC ANATOMY LEFT VENTRICLE: The cavity size was normal. Wall thickness was normal. Systolic function was normal. The estimated ejection fraction was in the range of 50% to 55%. Wall motion was normal; there were no regional wall motion abnormalities. AORTIC VALVE: Trileaflet; normal thickness leaflets. Doppler: Transvalvular velocity was within the normal range. There was no stenosis. No regurgitation. AORTA: Aortic root: The aortic root was normal in size. MITRAL VALVE: Mildly calcified annulus. Doppler: Transvalvular velocity was within the normal range. There was no evidence for stenosis. No regurgitation. Peak gradient: 7mm Hg (D). LEFT ATRIUM: The atrium was normal in size. RIGHT VENTRICLE: The cavity size was normal. Wall thickness was normal. PULMONIC VALVE: Doppler: Transvalvular velocity was within the normal range. There was no evidence for stenosis. No regurgitation. TRICUSPID VALVE: Structurally normal valve. Doppler: Transvalvular velocity was within the normal range. Trace regurgitation. PULMONARY ARTERY: The main pulmonary artery was normal-sized. Systolic pressure was within the normal range. RIGHT ATRIUM: The atrium was normal in size. PERICARDIUM: There was no pericardial effusion. SYSTEMIC VEINS: Inferior vena cava: The vessel was normal in size. BASIC MEASUREMENTS ADULT Normal Left ventricle LV internal dimension, ED, chordal level, *40.9 mm 43-52 PLAX LV posterior wall thickness, ED 7.75 mm IVS/LVPW ratio, ED 1.18 <1.3 Ventricular septum Septal thickness, ED 9.11 mm Left atrium Anterior-posterior dimension 35 mm Right ventricle RV internal dimension, ED, PLAX 19.9 mm 19-38 DOPPLER MEASUREMENTS ADULT Normal Main pulmonary artery Pressure, S 22 mm Hg =30 Mitral valve Peak E-wave velocity 130 cm/s Peak A-wave velocity 169 cm/s Peak gradient, D 7 mm Hg Peak E/A ratio 0.8 Tricuspid valve Regurgitant peak velocity 206 cm/s Peak RV-RA gradient, S 17 mm Hg Maximal regurgitant velocity 206 cm/s Systemic veins Estimated CVP 5 mm Hg Right ventricle RV pressure, S 22 mm Hg <30 LEGEND: Mean values are shown as u=mean value. Asterisk (*) seals values outside specified normal range. Prepared and signed by Tonya Wood [id number]
--- NOTE | 2016-08-28 16:38 | EKG ---
Date Performed: 08/27/2016 Time Performed: 13:52:00 PTAGE: 71 years EKG: Sinus rhythm POSSIBLE LEFT ATRIAL ENLARGEMENT MARKED LEFT AXIS DEVIATION LEFT BUNDLE BRANCH BLOCK ABNORMAL ECG NO PREVIOUS TRACING DOCTOR: Tonya Wood Interpretating Date/Time 08/28/2016 16:34:41
[2016-08-28] MEDS: ATORVASTATIN 40 MG TAB PO SCH (21:00)
[2016-08-29 01:27] VITALS: BP 150/83; PULSE 86; RESP 18; TEMP 98; O2SAT 97
[2016-08-29 05:28] VITALS: BP 117/64; PULSE 81; RESP 18; TEMP 97.8; O2SAT 97
[2016-08-29] MEDS: INSULIN ASPART SUPPLEMENTAL SCALE SQ SCH (06:12)
--- NOTE | 2016-08-29 07:36 | HHI.PR ---
Subjective Remarks resting comfortably with no distress. feels better. BP overall better. no new complaints and wants to go home. Objective Vitals Vital Signs Date Time Temp Pulse Resp B/P Pulse Ox O2 Delivery O2 Flow Rate FiO2 08/29/16 05:28 97.8 81 18 117/64 97 08/29/16 01:27 98.0 86 18 150/83 97 08/28/16 20:00 68 08/28/16 19:39 98.2 84 18 149/73 97 08/28/16 16:00 98.6 70 16 165/66 98 Automatic Cuff 08/28/16 12:10 160/70 08/28/16 12:00 97.8 71 16 190/68 100 08/28/16 08:00 98.2 63 16 151/60 98 08/28/16 08:00 69 I/O 08/28/16 08/28/16 08/28/16 08/29/16 08/29/16 08/29/16 07:00 15:00 23:00 07:00 15:00 23:00 Intake Total 720 ml Balance 720 ml Intake Oral 720 ml # Voids 4 # Bowel Movements 0 Result Diagram: 08/27/16 1315 Imaging Last Impressions Brain MRI 08/27/16 1401 Signed Impressions: Service Date/Time: Saturday, August 27, 2016 17:09 - CONCLUSION: Normal examination for a patient of this age. Sagar Jha MD Head CTA 08/27/16 1320 Signed Impressions: Service Date/Time: Saturday, August 27, 2016 13:28 - CONCLUSION: Normal examination. Specifically the left middle cerebral artery is normal Sagar Jha MD Neck CTA 08/27/16 1316 Signed Impressions: Service Date/Time: Saturday, August 27, 2016 13:28 - CONCLUSION: 1. Bilateral external carotid artery stenoses. 2. The common carotid arteries and internal carotid arteries are patent bilaterally. 3. Vertebral arteries are patent. 4. 8mm pulmonary nodule involving the right upper lobe. This is nonspecific in its CT appearance. Consider a followup CT of the thorax in 3-6 months. Hugh Quiles Jr., MD Head CT 08/27/16 0000 Signed Impressions: Service Date/Time: Saturday, August 27, 2016 13:20 - CONCLUSION: Questionable dense MCA sign on the left. No hemorrhage. Hugh Quiles Jr., MD Objective Remarks GENERAL: This is a well-nourished, well-developed patient, in no apparent distress. CARDIOVASCULAR: Regular rate and regular rhythm without murmurs, gallops, or rubs. RESPIRATORY: Clear to auscultation. Breath sounds equal bilaterally. No wheezes , rales, or rhonchi. GASTROINTESTINAL: Abdomen soft, non-tender, nondistended. Normal, active bowel sounds MUSCULOSKELETAL: Extremities without clubbing, cyanosis, or edema. NEURO: Alert & Oriented x4 to person, place, time, situation. Moves all ext x4 Procedures none Medications and IVs Current Medications Sodium Chloride (NS 1000 ml Inj) 1,000 ml @ 70 mls/hr [id number] ONCE IV Last administered on 08/27/16 13:54; Start 08/27/16 at 13:16; Stop 08/28/16 at 03:33 ; Status DC Aspirin (Aspirin) 325 mg ONCE ONCE PO Last administered on 08/27/16 14:35; Start 08/27/16 at 14:00; Stop 08/27/16 at 14:01; Status DC Iohexol (Omnipaque 350 Inj) 62 ml STK-MED ONCE IV Last administered on 14:03; Start 08/27/16 at 14:03; Stop 08/27/16 at 14:04; Status DC Aspirin 325 mg 325 mg DAILY PO Last administered on 08/28/16 08:57; Start at 09:00 Sodium Chloride (NS 1000 ml Inj) 1,000 ml @ 75 mls/hr [id number] IV Last administered on 08/28/16 03:07; Start 08/27/16 at 14:01; Stop 08/28/16 at 08:26 ; Status DC Enalaprilat (Vasotec Inj) 2.5 mg ONCE ONCE IV PUSH Last administered on 16:02; Start 08/27/16 at 14:15; Stop 08/27/16 at 14:16; Status DC Dextrose (D50w (Vial) Inj) 25 ml UNSCH PRN IV PUSH HYPOGLYCEMIA-SEE COMMENTS; Start 08/27/16 at 15:30 Glucagon (Glucagon Inj) 1 mg UNSCH PRN OTHER HYPOGLYCEMIA-SEE COMMENTS; Start 08/27/16 at 15:30 Insulin Aspart (NovoLOG SUPPLEMENTAL SCALE) 1 ACHS SLIDING SCALE SQ ; Start at 16:00 Atorvastatin Calcium (Lipitor) 40 mg HS PO Last administered on 08/28/16 21:00 ; Start 08/27/16 at 21:00 Acetaminophen (Tylenol) 650 mg Q4H PRN PO FEVER/PAIN/HEADACHE; Start 08/27/16 at 15:30 Enalaprilat (Vasotec Inj) 1.25 mg Q8H PRN IV PUSH SBP >200 OR DBP > 110; Start 08/27/16 at 15:30 Ondansetron HCl (Zofran Inj) 4 mg Q8HR PRN IV PUSH NAUSEA; Start 08/27/16 at 15 :30 Gadodiamide (Omniscan Pf Inj) 15 ml STK-MED ONCE IV Last administered on 17:39; Start 08/27/16 at 17:39; Stop 08/27/16 at 17:40; Status DC Amlodipine Besylate (Norvasc) 5 mg DAILY PO ; Start 08/28/16 at 09:00; Stop at 09:00; Status DC Lisinopril (Prinivil) 20 mg DAILY PO ; Start 08/28/16 at 09:00; Stop 08/28/16 at 09:00; Status DC Lisinopril (Prinivil) 20 mg DAILY PO Last administered on 08/28/16 08:57; Start 08/28/16 at 09:00 Amlodipine Besylate (Norvasc) 5 mg DAILY PO ; Start 08/28/16 at 08:15; Stop at 08:37; Status DC Amlodipine Besylate (Norvasc) 5 mg DAILY PO Last administered on 08/28/16 08: 56; Start 08/28/16 at 09:00 Nifedipine (Procardia Xl) 30 mg ONCE ONCE PO Last administered on 08/28/16 12 :42; Start 08/28/16 at 12:45; Stop 08/28/16 at 12:46; Status DC A/P Assessment and Plan -transient global amnesia continue aspirin and statin- neuro checks- MRI of the brain negative. EEG normal. cleared for discharge per neuro. -hypertension; overall better controlled- will increase amlodipine and continue lisinopril- f/u as outpatient -diabetes mellitus; accu-check with SSI -dyslipidemia; resumed statin -pulmonary nodule- f/u as outpatient and this was d/w the patient. -DVT prophylaxis with SCD's. Discharge Planning dc home today. see med list. f/u; pcp and neurology. d/w the patient, previously with her . Padmini Chacon MD Aug 29, 2016 07:36
[2016-08-29] MEDS ORDERED: AMLO5TAB2 PO (07:39)
[2016-08-29] MEDS: amLODIPine BESYLATE 5 MG TAB PO SCH (08:16)
[2016-08-29] MEDS: LISINOPRIL 20 MG TAB PO SCH (08:16)
[2016-08-29] MEDS: ASPIRIN EC 325 MG TABEC PO SCH (08:16)
[2016-08-29 08:17] VITALS: PULSE 59
[2016-08-29 08:44] VITALS: BP 125/60; PULSE 59; RESP 18; TEMP 98.2; O2SAT 98
--- NOTE | 2016-08-29 09:35 | HM ---
Date Performed: 08/27/2016 Time Performed: 22:44:00 HOOKUP DATE: 08/27/16 10:44:00 PM Mon ANALYSIS START TIME: 08/27/2016 10:49:00 PM ANALYSIS END TIME: 08/28/2016 9:23:55 PM PATIENT AGE: 71 PATIENT HEIGHT: 62 PATIENT WEIGHT: 160 DRUG LIST: room # [id number] PATIENT DIAGNOSIS: psych eval TEST NARRATIVE: The patient's average heart rate was 63 BPM. Heart rates greater than 120 B PM were noted < 1% of the time. Heart rates less than 50 BPM were noted 5% of the time. No pause s exceeding 2.0 seconds were noted. 6 ventricular ectopics, which represented < 1% of the total b eat count, were noted. The highest ventricular ectopic frequency occurred from 07:00 AM to 08:00 AM Tue. During this time 2 VE(s) occurred. Ventricular ectopics were observed as 6 isolated beat(s) on ly. No couplets or runs were noted. 41 supraventricular ectopics, which represented < 1% of the total beat count, were noted. The highest supraventricular ectopic frequency occurred from 08:00 PM to 09:00 PM Tue. During this time 11 SVE(s) occurred. No episodes of ST depression (defined as - 1.0 mm or more) were noted in channel 1. No episodes of ST depression (defined as -1.0 mm or more) w ere noted in channel 2. No episodes of ST depression (defined as -1.0 mm or more) were noted in t[facility] 3. NO DIARY MAINTAINED TEST INTERPRETATION: No diary was maintained. No significant pauses are present. The underlyin g rhythm is Sinus rhythm with average rate 63 beats per minute and range of 46-129 beats per minute. Intermittent bundle bra nch block is present. Rare premature ventricular contractions are seen. Occasional premature atrial contractions are seen with occasional short, nonsustained atrial runs. Signed by : Leonid Moore
[2016-08-29 14:01] LABS: ANA SCREEN NEG (NEG)
== END 2016-08-29 11:09 | disposition home or self-care (01) ==
LOC: NEPE 12:59 → NEDA 15:12 → NEPGCP 16:44
PROVIDERS: ADMIT Internal Medicine; ATTEND Internal Medicine
DX: G45.4 Transient global amnesia (principal); R41.82 Altered mental status, unspecified; H53.8 Other visual disturbances; I10 Essential (primary) hypertension; E11.9 Type 2 diabetes mellitus without complications; E78.5 Hyperlipidemia, unspecified
CPT/HCPCS: 70450; 70496; 70498; 70553; 80061; 80307; 81001; 82435; 82550; 82565; 82607; 82746; 82947; 82948; 84132; 84295; 84425; 84439; 84443; 84450; 84460; 84484; 84520; 85025; 85610; 85652; 85730; 86038; 86592; 86850; 86900; 86901; 93005; 93225; 93226; 93306; 95819; 99291; A9579; G0378; J7030; Q9967